=== PATIENT | female | born 1940 | race Caucasian/White ===

== ENCOUNTER → 2017-02-09 | Outpatient (REF) | payer MEDICARE, OTHER ==
[2017-02-09 12:33] LABS: ALBUMIN 3.5 GM/DL (3.2-5.2); ALBUMIN/GLOBULIN RATIO 1.09 (1.00-1.93); ALKALINE PHOSPHATASE 77 U/L (45-117); ALT/SGPT 30 U/L (12-78); ANION GAP 5 MEQ/L (8-16); AST/SGOT 18 U/L (15-37); BILIRUBIN,TOTAL 0.9 MG/DL (0.2-1.0); BLOOD UREA NITROGEN 19 MG/DL (7-18); CALCIUM LEVEL 9.2 MG/DL (8.8-10.2); CARBON DIOXIDE LEVEL 31 MEQ/L (21-32); CHLORIDE LEVEL 106 MEQ/L (98-107); CHOLESTEROL LEVEL 147 MG/DL (<200); CREATININE FOR GFR 0.91 MG/DL (0.55-1.02); GLOMERULAR FILTRATION RATE > 60.0 (>39); GLUCOSE, FASTING 113 MG/DL (83-110); POTASSIUM SERUM 4.5 MEQ/L (3.5-5.1); SODIUM LEVEL 142 MEQ/L (136-145); TOTAL PROTEIN 6.7 GM/DL (6.4-8.2); TRIGLYCERIDES LEVEL 64 MG/DL (<150)
== END ==
LOC: M SFHCPLAZ 07:46
PROVIDERS: ATTEND Nurse Practitioner Family
DX: I10 Essential (primary) hypertension (principal); E88.81 Metabolic syndrome and other insulin resistance; E78.2 Mixed hyperlipidemia; Z79.899 Other long term (current) drug therapy

== ENCOUNTER → 2017-08-12 | Outpatient (REF) | payer MEDICARE, OTHER ==
[2017-08-12 10:43] LABS: ALBUMIN 3.7 GM/DL (3.2-5.2); ALBUMIN/GLOBULIN RATIO 1.12 (1.00-1.93); BILIRUBIN,TOTAL 1.2 MG/DL (0.2-1.0); CALCIUM LEVEL 9.3 MG/DL (8.8-10.2); CREATININE FOR GFR 1.02 MG/DL (0.55-1.02); GLOMERULAR FILTRATION RATE 56.4 (>39); POTASSIUM SERUM 4.5 MEQ/L (3.5-5.1)
== END ==
LOC: M SFHCPLAZ 07:46
PROVIDERS: ATTEND Nurse Practitioner Family
DX: E88.81 Metabolic syndrome and other insulin resistance (principal); I10 Essential (primary) hypertension; M85.80 Other specified disorders of bone density and structure, unspecified site; Z79.899 Other long term (current) drug therapy

== ENCOUNTER → 2017-08-19 | Outpatient (CLI) | payer MEDICARE, BC ==
--- NOTE | 2017-08-19 09:10 | REPMRS ---
Patient History The patient states she had a clinical breast exam in 08/07 Family history of colorectal cancer in mother at age 89. Digital Woman Screen Mammo: August 19, 2017 - Exam #: [id number] Bilateral CC and MLO view(s) were taken. Technologist: Savannah Quispe, Technologist Prior study comparison: August 12, 2016, digital woman screen mammo performed at [facility]. August 03, 2015, digital woman screen mammo performed at [facility]. April 28, 2014, digital woman screen mammo performed at [facility]. FINDINGS: There are scattered fibroglandular densities. There has been no change in the appearance of the mammogram from the prior studies. There is a mild amount of scattered fibroglandular density which is fairly symmetric. There is no interval development of dominant mass, architectural distortion, or clustered microcalcification suggestive of malignancy. ASSESSMENT: BI-RADS/ACR category 1 mammogram. Negative. Recommendation Routine screening mammogram in 1 year (for women over age 40). This mammogram was interpreted with the aid of an FDA-approved computer-aided dectection system. Electronically Signed By: Blayne Brownlee MD 08/19/17 [id number]
== END ==
LOC: M WHC 08:04
PROVIDERS: ATTEND Nurse Practitioner Family
DX: Z12.31 Encounter for screening mammogram for malignant neoplasm of breast (principal); Z23 Encounter for immunization
CPT/HCPCS: 90662; 99497; G0008; G0202

== ENCOUNTER → 2018-08-11 | Outpatient (CLI) | payer MEDICARE, BC | LOC: M WHC 08:32 | DX: Z12.31 Encounter for screening mammogram for malignant neoplasm of breast (principal); Z80.0 Family history of malignant neoplasm of digestive organs; Z23 Encounter for immunization | CPT/HCPCS: 77067 ==

== ENCOUNTER → 2019-01-17 | Outpatient (REF) | payer MEDICARE, OTHER ==
[2019-01-17 12:47] LABS: ALBUMIN 3.6 GM/DL (3.2-5.2); BILIRUBIN,TOTAL 1.7 MG/DL (0.2-1.0); CALCIUM LEVEL 8.6 MG/DL (8.8-10.2); CHOLESTEROL RISK RATIO 2.262 (<5); CREATININE FOR GFR 1.2 MG/DL (0.55-1.30); GLOMERULAR FILTRATION RATE 46.5 (>39); POTASSIUM SERUM 4.4 MEQ/L (3.5-5.1); TOTAL PROTEIN 6.9 GM/DL (6.4-8.2)
[2019-01-17 12:55] LABS: TOTAL 25(OH) VITAMIN D 51.9 NG/ML (30.0-100.0)
[2019-01-17 12:57] LABS: CREATININE, URINE 63.2 MG/DL; MALB URINE SIEMENS 5.1 MG/L
[2019-01-17 12:59] LABS: HEMOGLOBIN A1c 6.2 %
== END ==
LOC: M SFHCPLAZ 08:05
PROVIDERS: ATTEND Nurse Practitioner Family
DX: I10 Essential (primary) hypertension (principal); E88.81 Metabolic syndrome and other insulin resistance; E78.2 Mixed hyperlipidemia; E55.9 Vitamin D deficiency, unspecified

== ENCOUNTER 2019-02-10 06:40 | Day surgery (SDC) | payer MEDICARE, BC, OTHER ==
[~2019-02-10] VITALS: Ht 147.3 cm; Wt 59.9 kg
[~2019-02-10 06:40] MED LIST: ATOR1TAB21 PO; BISO5TAB5 PO; FLON1SPR; MECL1CHW PO; RANI150T PO; REST0.05 OU
[2019-02-10] MEDS ORDERED: NS 1,000 ML IV ONE (07:00)
[2019-02-10] MEDS ORDERED: VITAD1000T PO (07:18)
[2019-02-10] MEDS ORDERED: OCUVCAP2 PO (07:18)
[2019-02-10] MEDS ORDERED: MULTCAP PO (07:18)
[2019-02-10] MEDS ORDERED: PROPOFOL 200 MG/20 ML VIAL As Ordered ONE (07:55)
--- NOTE | 2019-02-10 08:29 | ROOR ---
Patient Name: Nydia Chatterjee Procedure Date: 02/10/2019 7:54 AM Date of : 1940 Age: 78 Room: [facility] Gender: Female Note Status: Finalized Procedure: Colonoscopy Indications: High risk colon cancer surveillance: Personal history of colonic polyps Providers: Rolando Joshua Jr, MD Referring MD: Shana Alcaraz NP Requesting Provider: Medicines: Propofol per Anesthesia Complications: No immediate complications. Procedure: Pre-Anesthesia Assessment: - Prior to the procedure, a History and Physical was performed, and patient medications and allergies were reviewed. The patient is competent. The risks and benefits of the procedure and the sedation options and risks were discussed with the patient. All questions were answered and informed consent was obtained. Patient identification and proposed procedure were verified by the physician and the nurse in the pre-procedure area and in the procedure room. Mental Status Examination: alert and oriented. Airway Examination: normal oropharyngeal airway and neck mobility. Respiratory Examination: clear to auscultation. CV Examination: normal. ASA Grade Assessment: II - A patient with mild systemic disease. After reviewing the risks and benefits, the patient was deemed in satisfactory condition to undergo the procedure. The anesthesia plan was to use moderate sedation / analgesia (conscious sedation). Immediately prior to administration of medications, the patient was re-assessed for adequacy to receive sedatives. The heart rate, respiratory rate, oxygen saturations, blood pressure, adequacy of pulmonary ventilation, and response to care were monitored throughout the procedure. The physical status of the patient was re-assessed after the procedure. The Colonoscope was introduced through the anus and advanced to the cecum, identified by appendiceal orifice and ileocecal valve. The colonoscopy was performed without difficulty. The patient tolerated the procedure well. The quality of the bowel preparation was adequate. Findings: Five polyps were found in the descending colon, transverse colon, ascending colon and appendiceal orifice. The polyps were small in size. These polyps were removed with a hot snare. Resection was complete, but the polyp tissue was only partially retrieved. Multiple small and large-mouthed diverticula were found in the sigmoid colon. A few small and large-mouthed diverticula were found in the descending colon. Impression: - Five small polyps in the descending colon, in the transverse colon, in the ascending colon and at the appendiceal orifice, removed with a hot snare. Complete resection. Partial retrieval. - Diverticulosis in the sigmoid colon. - Diverticulosis in the descending colon. Recommendation: - Discharge patient to home (ambulatory). - Repeat colonoscopy in 5 years for surveillance. Rolando Joshua MD Rolando Joshua Jr, MD 02/10/2019 8:29:02 AM Electronically signed by Rolando Joshua Jr, MD Number of Addenda: 0 Note Initiated On: 02/10/2019 7:54 AM Estimated Blood Loss: Estimated blood loss: none.
[2019-02-10 09:05] VITALS: BP 146/68
== END 2019-02-10 09:07 | disposition home or self-care (01) ==
LOC: M OPP 06:40
PROVIDERS: ATTEND Surgery
DX: Z12.11 Encounter for screening for malignant neoplasm of colon (principal); Z86.010 Personal history of colon polyps; D12.4 Benign neoplasm of descending colon; D12.3 Benign neoplasm of transverse colon; D12.2 Benign neoplasm of ascending colon; D12.1 Benign neoplasm of appendix; K57.30 Diverticulosis of large intestine without perforation or abscess without bleeding; Z79.899 Other long term (current) drug therapy; Z87.891 Personal history of nicotine dependence; Z80.8 Family history of malignant neoplasm of other organs or systems

== ENCOUNTER → 2019-08-31 | Outpatient (CLI) | payer MEDICARE, BC, OTHER ==
[~2019-08-31] MED LIST changes: -BISO5TAB5 PO; +BISO5TAB9 PO; +CHOL100029 PO; +MULTCAP PO; +OCUVCAP2 PO
--- NOTE | 2019-08-31 10:06 | REPMRS ---
Patient History The patient states she had a clinical breast exam in 2018. Family history of colorectal cancer at age 89 in mother. 3D TOMOSYNTHESIS WAS PERFORMED. [facility] for [facility] 3.[facility]%. Digital Woman Screen Mammo: August 31, 2019 - Exam #: [id number] Bilateral CC and MLO view(s) were taken. Technologist: Christi French, Technologist Prior study comparison: August 11, 2018, bilateral digital woman screen mammo performed at [facility]. August 19, 2017, digital woman screen mammo performed at [facility]. FINDINGS: There are scattered fibroglandular densities. There has been no change in the appearance of the mammogram from the prior studies. There is a mild amount of residual fibroglandular tissue which is fairly symmetric. There is no interval development of dominant mass, architectural distortion, or clustered microcalcification suggestive of malignancy. Assessment: BI-RADS/ACR category 1 mammogram. Negative Mammogram. Recommendation Routine screening mammogram in 1 year (for women over age 40). This mammogram was interpreted with the aid of an FDA-approved computer-aided dectection system. Electronically Signed By: Jamil Starks MD 08/31/19 2003
== END ==
LOC: M WHC 07:54
PROVIDERS: ATTEND Nurse Practitioner Family
DX: Z12.31 Encounter for screening mammogram for malignant neoplasm of breast (principal)

== ENCOUNTER → 2020-01-20 | Outpatient (REF) | payer MEDICARE, OTHER ==
[~2020-01-20] MED LIST changes: +BISO5TAB14 PO; -BISO5TAB9 PO
[2020-01-20 10:12] LABS: ALBUMIN 3.5 GM/DL (3.2-5.2); BILIRUBIN,TOTAL 1.4 MG/DL (0.2-1.0); CALCIUM LEVEL 8.9 MG/DL (8.8-10.2); CHOLESTEROL RISK RATIO 2.265 (<5); CREATININE FOR GFR 1.04 MG/DL (0.55-1.30); GLOMERULAR FILTRATION RATE 54.7 (>39); POTASSIUM SERUM 4.2 MEQ/L (3.5-5.1); TOTAL PROTEIN 6.7 GM/DL (6.4-8.2)
[2020-01-20 10:19] LABS: TOTAL 25(OH) VITAMIN D 53.5 NG/ML (30.0-100.0)
[2020-01-20 10:37] LABS: HEMOGLOBIN A1c 6.2 %
[2020-01-20 14:16] LABS: CREATININE, URINE 52.7 MG/DL; MALB URINE SIEMENS 29.6 MG/L; MAU/CREAT RATIO 56.1 MCG/MG (0.0-30.0)
== END ==
LOC: M PLALAB 07:55
PROVIDERS: ATTEND Nurse Practitioner Family
DX: I10 Essential (primary) hypertension (principal); E88.81 Metabolic syndrome and other insulin resistance; E78.2 Mixed hyperlipidemia; E55.9 Vitamin D deficiency, unspecified

== ENCOUNTER → 2020-05-25 | Outpatient (CLI) | payer MEDICARE, OTHER ==
[2020-05-25 12:10] LABS: ALBUMIN 3.4 GM/DL (3.2-5.2); BILIRUBIN,TOTAL 1.9 MG/DL (0.2-1.0); CALCIUM LEVEL 9.2 MG/DL (8.8-10.2); CREATININE FOR GFR 1.11 MG/DL (0.55-1.30); GLOMERULAR FILTRATION RATE 50.7 (>39); POTASSIUM SERUM 4.3 MEQ/L (3.5-5.1); TOTAL PROTEIN 6.4 GM/DL (6.4-8.2)
[2020-05-25 12:38] LABS: CREATININE, URINE 99.8 MG/DL
== END ==
LOC: M PLALAB 08:32
PROVIDERS: ATTEND Nurse Practitioner Family
DX: R80.9 Proteinuria, unspecified (principal); I10 Essential (primary) hypertension; Z79.899 Other long term (current) drug therapy

== ENCOUNTER → 2020-12-18 | Outpatient (REF) | payer MEDICARE, OTHER ==
[2020-12-18 14:33] LABS: HEMOGLOBIN A1c 5.9 %
[2020-12-18 14:48] LABS: ALBUMIN 3.8 GM/DL (3.2-5.2); CALCIUM LEVEL 9.9 MG/DL (8.8-10.2); CHOLESTEROL RISK RATIO 2.318 (<5); CREATININE FOR GFR 1.14 MG/DL (0.55-1.30); FREE T4 1.2 NG/DL (0.76-1.46); GLOMERULAR FILTRATION RATE 49.1 (>39); MALB URINE SIEMENS 9.1 MG/L; MAU/CREAT RATIO 5.6 MCG/MG (0.0-30.0); POTASSIUM SERUM 4.1 MEQ/L (3.5-5.1); THYROID STIMULATING HORMONE 1.52 uIU/ML (0.358-3.740); TOTAL PROTEIN 6.8 GM/DL (6.4-8.2)
[2020-12-18 15:28] LABS: TOTAL 25(OH) VITAMIN D 52.8 NG/ML (30.0-100.0)
== END ==
LOC: M PLALAB 10:01
PROVIDERS: ATTEND Nurse Practitioner Family
DX: I10 Essential (primary) hypertension (principal); R41.89 Other symptoms and signs involving cognitive functions and awareness; E88.81 Metabolic syndrome and other insulin resistance; E78.2 Mixed hyperlipidemia; E55.9 Vitamin D deficiency, unspecified

== ENCOUNTER → 2020-12-18 | Outpatient (CLI) | payer MEDICARE, BC ==
--- NOTE | 2020-12-18 12:47 | DEXAMM ---
INDICATION: M85.80 OSTEOPENIA. COMPARISON: Comparison studies including most recent exam from September 02, 2016 and the most remote which is dated Feb 13 2004.. TECHNIQUE: Bone density was measured using dual-energy x-ray absorptionmetry (DEXA). FINDINGS: AP SPINE L1-L4 BMD 1.142 g/cm2 Young Adult T-Score -0.4 Age Matched Z-Score 1.4. LT FEMUR, TOTAL BMD 0.770 g/cm2 Young Adult T-Score -1.9 Age Matched Z-Score 0.0. LT NECK BMD 0.751 g/cm2 Young Adult T-Score -2.1 Age Matched Z-Score 0.0. RT FEMUR, TOTAL BMD 0.757 g/cm2 Young Adult T-Score -2.0 Age Matched Z-Score -0.1. RT NECK BMD 0.731 g/cm2 Young Adult T-Score -2.2 Age Matched Z-Score -0.2. IMPRESSION: There is normal bone density of the spine. There is low bone density of the left hip. There is low bone density of the right hip. The density of the spine has increased 4.3% since the initial exam on February 13, 2004. The density of the spine increased 15.2% since most recent exam on September 02, 2016. The density of the left hip has decreased 10.3% since initial exam on February 13, 2004. The density of the left hip has increased 4.6% since most recent exam on September 02, 2016. The density of the right hip has decreased 11.0% since the initial exam on February 13, 2004. The density of the right hip has increased 2.7% since the most recent exam on September 02, 2016. FOLLOW-UP: Recommendation for the next bone density exam: 2 years. <Electronically signed by Blayne Brownlee > 12/18/20 [id number]
== END ==
LOC: M WHC 10:46
PROVIDERS: ATTEND Nurse Practitioner Family
DX: M85.851 Other specified disorders of bone density and structure, right thigh (principal); M85.852 Other specified disorders of bone density and structure, left thigh; I10 Essential (primary) hypertension; R41.89 Other symptoms and signs involving cognitive functions and awareness; E88.81 Metabolic syndrome and other insulin resistance; E78.2 Mixed hyperlipidemia; E55.9 Vitamin D deficiency, unspecified; Z79.899 Other long term (current) drug therapy

== ENCOUNTER 2021-04-04 06:51 | Emergency (ER) | payer MEDICARE, BC, OTHER ==
[~2021-04-04] VITALS: Ht 144.8 cm; Wt 60.9 kg
--- NOTE | 2021-04-04 08:26 | REP ---
INDICATION: left calf pain r/o dvt. COMPARISON: None. TECHNIQUE: Left {lower extremity duplex venous scanning is performed from the groin to the ankle level. FINDINGS: The deep veins are anechoic and fully compressible from the groin to the popliteal fossa in the left lower extremity. Color flow imaging is homogeneous. Spectral Doppler interrogation demonstrates intact respiratory variation in flow and normal manual augmentation of flow. There is no evidence of deep vein thrombosis above the knee. There is no evidence of DVT in the visualized calf veins. Doppler interrogation of the contralateral common femoral vein shows normal symmetric respiratory phasicity. IMPRESSION: No evidence of DVT in the left lower extremity femoropopliteal veins. No DVT in the visible portions of the calf veins. <Electronically signed by Blayne Brownlee > 04/04/21 [id number]
[2021-04-04 09:01] VITALS: BP 145/65
== END 2021-04-04 09:02 | disposition home or self-care (01) ==
LOC: M ED 06:51
DX: G47.62 Sleep related leg cramps (principal); Z79.899 Other long term (current) drug therapy; Z88.0 Allergy status to penicillin

== ENCOUNTER 2021-04-10 10:25 | Emergency (ER) | payer MEDICARE, BC, OTHER ==
[~2021-04-10] VITALS: Ht 146.1 cm; Wt 59.3 kg
[2021-04-10 12:57] LABS: BASO % 0.1 % (0.0-1.0); HEMATOCRIT 38.2 % (36.0-47.0); HEMOGLOBIN 12.9 g/dl (12.0-15.5); LYMPH # 0.4 10^3/uL (1.5-5.0); LYMPH % 3.3 % (24.0-44.0); MEAN CORPUSCULAR HEMOGLOBIN 34.3 pg (27.0-33.0); MEAN CORPUSCULAR HGB CONC 33.8 g/dl (32.0-36.5); MEAN CORPUSCULAR VOLUME 101.6 fl (80.0-96.0); MONO # 0.3 10^3/uL (0.0-0.8); MONO % 2.3 % (2.0-8.0); NEUTROPHILS # 10.8 10^3/uL (1.5-8.5); NEUTROPHILS % 93.8 % (36.0-66.0); PLATELET COUNT, AUTOMATED 209 10^3/uL (150-450); RED BLOOD COUNT 3.76 10^6/uL (4.00-5.40); WHITE BLOOD COUNT 11.5 10^3/uL (4.0-10.0)
[2021-04-10 13:26] LABS: CALCIUM LEVEL 9.2 MG/DL (8.8-10.2); CREATININE FOR GFR 1.1 MG/DL (0.55-1.30); GLOMERULAR FILTRATION RATE 51.1 (>39)
[2021-04-10 13:27] LABS: ALBUMIN 3.7 GM/DL (3.2-5.2); BILIRUBIN,DIRECT 0.3 MG/DL (0.0-0.2); BILIRUBIN,TOTAL 1.5 MG/DL (0.2-1.0)
[2021-04-10] MEDS ORDERED: ONDA4TAB6 PO (14:39)
[2021-04-10 15:04] VITALS: BP 170/72
== END 2021-04-10 15:06 | disposition home or self-care (01) ==
LOC: M ED 10:25
DX: K62.5 Hemorrhage of anus and rectum (principal); F03.90 Unspecified dementia, unspecified severity, without behavioral disturbance, psychotic disturbance, mood disturbance, and anxiety; E78.5 Hyperlipidemia, unspecified; Z79.899 Other long term (current) drug therapy; Z88.0 Allergy status to penicillin

== ENCOUNTER 2021-05-04 02:36 | Inpatient (IN) | payer MEDICARE, BC, OTHER ==
[~2021-05-04] VITALS: Ht 152.4 cm; Wt 56.3 kg
[~2021-05-04 02:36] MED LIST changes: +ONDA4TAB6 PO
[2021-05-04 03:24] LABS: APPEARANCE, URINE HAZY (CLEAR); BACTERIA, URINE AUTO 1+ (NEGATIVE); BILIRUBIN, URINE AUTO NEGATIVE (NEGATIVE); BLOOD, URINE BLOOD NEGATIVE (NEGATIVE); COLOR, URINE YELLOW (YELLOW); GLUCOSE, URINE (UA) AUTO NEGATIVE (NEGATIVE); KETONE, URINE AUTO NEGATIVE (NEGATIVE); LEUKOCYTE ESTERASE, URINE AUTO 3+ (NEGATIVE); MUCUS, URINE SMALL (NEGATIVE); NITRITE, URINE AUTO NEGATIVE (NEGATIVE); PROTEIN, URINE AUTO NEGATIVE (NEGATIVE); RBC, URINE AUTO 4 /HPF (0-3); SPECIFIC GRAVITY URINE AUTO 1.008 (1.002-1.035); SQUAMOUS EPITHELIAL CELL UR AU 2 /HPF (0-6); TRANSITIONAL EPITHELIAL AUTO 2 /HPF; UROBILINOGEN, URINE AUTO 0.2 mg/dL (0.0-2.0); WBC, URINE AUTO 66 /HPF (0-3)
[2021-05-04 03:41] LABS: AMPHETAMINES LEVEL URINE NEGATIVE (NEGATIVE); BARBITURATES URINE NEGATIVE (NEGATIVE); BENZODIAZEPINES URINE NEGATIVE (NEGATIVE); CANNABINOIDS URINE NEGATIVE (NEGATIVE); COCAINE METABOLITE URINE NEGATIVE (NEGATIVE); METHADONE URINE NEGATIVE (NEGATIVE); OPIATES URINE NEGATIVE (NEGATIVE); PHENCYCLIDINE URINE NEGATIVE (NEGATIVE)
[2021-05-04] MEDS ORDERED: diphenhydrAMINE 50MG/ML VIAL (J1200) As Ordered ONE (04:26)
[2021-05-04] MEDS ORDERED: HALOPERIDOL 5MG/ML VIAL (J1630 PER 1) As Ordered ONE (04:27)
[2021-05-04] MEDS ORDERED: LORazepam 2 MG/ML VIAL As Ordered ONE (04:27)
[2021-05-04] MEDS ORDERED: LORazepam 2 MG/ML VIAL IM ONE (04:30)
[2021-05-04] MEDS ORDERED: LORazepam 2 MG/ML VIAL IM STA (04:30)
[2021-05-04] MEDS ORDERED: diphenhydrAMINE 50MG/ML VIAL (J1200) IM ONE (04:30)
[2021-05-04] MEDS ORDERED: HALOPERIDOL 5MG/ML VIAL (J1630 PER 1) IM ONE (04:30)
[2021-05-04 04:46] LABS: HEMATOCRIT 41.2 % (36.0-47.0); HEMOGLOBIN 13.9 g/dl (12.0-15.5); MEAN CORPUSCULAR HEMOGLOBIN 34.6 pg (27.0-33.0); MEAN CORPUSCULAR HGB CONC 33.7 g/dl (32.0-36.5); MEAN CORPUSCULAR VOLUME 102.5 fl (80.0-96.0); PLATELET COUNT, AUTOMATED 241 10^3/uL (150-450); RED BLOOD COUNT 4.02 10^6/uL (4.00-5.40); WHITE BLOOD COUNT 7.3 10^3/uL (4.0-10.0)
[2021-05-04 05:20] LABS: ACETAMINOPHEN LEVEL < 2.0 UG/ML (10.0-30.0); ALBUMIN 4.2 GM/DL (3.2-5.2); ALT/SGPT 29 U/L (12-78); BILIRUBIN,DIRECT 0.4 MG/DL (0.0-0.2); BILIRUBIN,TOTAL 1.7 MG/DL (0.2-1.0); BLOOD UREA NITROGEN 14 MG/DL (7-18); CALCIUM LEVEL 9.6 MG/DL (8.8-10.2); CARBON DIOXIDE LEVEL 25 MEQ/L (21-32); CHLORIDE LEVEL 110 MEQ/L (98-107); CREATININE FOR GFR 1.18 MG/DL (0.55-1.30); ETHYL ALCOHOL (ETHANOL) < 0.003 % (0.000-0.010); GLOMERULAR FILTRATION RATE 47.2 (>39); GLUCOSE, FASTING 137 MG/DL (70-100); SALICYLATE LEVEL < 1.7 MG/DL (5.0-30.0); SODIUM LEVEL 144 MEQ/L (136-145); TOTAL PROTEIN 7.7 GM/DL (6.4-8.2)
[2021-05-04 05:43] LABS: CPK CREATINE PHOSPHOKINASE 196 U/L (26-192); MB/CK RELATIVE INDEX 2.04 (< OR =4); TROPONIN I < 0.02 NG/ML (< 0.10)
--- NOTE | 2021-05-04 06:41 | REPVR ---
PROCEDURE INFORMATION: Exam: CT Head Without Contrast Exam date and time: 05/04/2021 5:10 AM Age: 80 years old Clinical indication: Altered mental status/memory loss; Confusion or disorientation TECHNIQUE: Imaging protocol: Computed tomography of the head without contrast. Radiation optimization: All CT scans at this facility use at least one of these dose optimization techniques: automated exposure control; mA and/or kV adjustment per patient size (includes targeted exams where dose is matched to clinical indication); or iterative reconstruction. COMPARISON: No relevant prior studies available. FINDINGS: Brain: Diffuse moderate cerebral age related volume loss. Moderate patchy low attenuation in the white matter compatible with moderate chronic small vessel ischemic disease. No midline shift, mass, fluid collection, or evidence of hemorrhage. Cerebral ventricles: Ventricular enlargement proportional to volume loss. Paranasal sinuses: Visualized sinuses are unremarkable. No fluid levels. Mastoid air cells: Visualized mastoid air cells are well aerated. Bones/joints: Unremarkable. No acute fracture. Soft tissues: Unremarkable. IMPRESSION: Moderate involutional changes, no acute intracranial abnormality. Electronically signed by: Tim Mills On 05/04/2021 06:40:34 AM
[2021-05-04] MEDS ORDERED: CIPROFLOXACIN 500MG TABLET PO ONE (07:35)
[2021-05-04] MEDS ORDERED: ONDA4TAB6 PO (07:53)
[2021-05-04] MEDS ORDERED: D31000TA2 PO (08:00)
[2021-05-04] MEDS ORDERED: VITMTA PO (08:00)
[2021-05-04] MEDS ORDERED: CALCTAB41 PO (08:00)
[2021-05-04] MEDS ORDERED: OCUVTAB8 PO (08:00)
[2021-05-04] MEDS ORDERED: HOME MED LIST COMPLETE! XX SCH (08:05)
[2021-05-04] MEDS ORDERED: ONDANSETRON 4 MG ORAL DISINTEGRATING TAB PO PRN (08:20)
[2021-05-04] MEDS: ENOXAPARIN 40MG/0.4ML SYRINGE (J1650 PER 10MG) SC SCH (09:00)
--- NOTE | 2021-05-04 09:11 | ECGEPIP ---
[facility] - ED Test Date: 2021-05-04 Pat Name: ANNETTE TORRES Department: Room: - Gender: Female Assessment Nurse: PSYCH : 1940 Requested By: LICO Starkey Order Number: [id number] Reading MD: Scar Siddiqui Measurements Intervals [place] Rate: 53 P: 57 AR: 132 QRS: 26 QRSD: 72 T: 7 QT: 448 QTc: 420 Interpretive Statements Sinus bradycardia NSTTW ABNORMALITY(S) NO PRIORS FOR COMPARISON Electronically Signed on 05-04-2021 9:10:49 EDT by Scar Siddiqui
[2021-05-04 09:46] LABS: RSV AMPLIFICATION NEGATIVE (NEGATIVE)
[2021-05-04] MEDS: OCUVITE 1 TAB PO SCH (12:00)
[2021-05-04] MEDS: CIPROFLOXACIN 500MG TABLET PO SCH ×2 (12:00→17:14)
[2021-05-04] MEDS: bisoproloL fumarate 5 MG TAB PO SCH (12:00)
[2021-05-04] MEDS: THIAMINE 100 MG TAB PO SCH (12:00)
[2021-05-04] MEDS: VITAMIN D 1,000 INTERNATIONAL UNITS TABLET PO SCH (12:00)
--- NOTE | 2021-05-04 12:17 | HPEPDOC ---
General Date of Admission May 04, 2021 at 08:13 Date of Service: May 04, 2021 Chief Complaint The patient is a 80-year-old female admitted with a reason for visit of Dementia, Uti. Source: Patient History of Present Illness Mrs. Chatterjee is a 80 year old female with dementia, hypertension, and CKD stage 3 who is here for metabolic encephalopathy. Patient was sedated with Ativan, and I was not able to obtain history from her. Instead, history was obtained from her Tariq Chatterjee. Patient has been having memory problems and agitation for several years. Her PCP had referred patient to neurology for dementia, but patient refused to do lab work and MRI. Her dementia has become progressively worse where she does not remember being to Tariq Chatterjee. She refers to him as "sir" and "friend". She would get in arguments with him and walk away. She would forget about her and about her family friends as well. She would sometimes cry and say she wants to go home when she was already at home. About 2 to 3 weeks ago, she started to become more a gitated. She took all the coats out from the closet and throw them around the house. Last night after midnight, she wandered outside. Neighbor found her and spoke with her. She was agitated and police was called. She did not want to go home. came out and was eventually able to get her home. She got in an argument again with him at home, and she walked outside again. Police was called back, and patient was taken to the ED as a danger to herself. While here, vital signs were stable. No fever or leukocytosis. Renal function at baseline. TSH was within normal. Around 4 am, patient was agitated and was given IM Ativan. UA demonstrated pyuria. Patient will be admitted for metabolic encephalopathy. Home Medications Scheduled Atorvastatin Calcium (Atorvastatin Calcium) 20 Mg Tablet, 20 MG PO QHS, (Reported) Bisoprolol Fumarate (Bisoprolol Fumarate) 5 Mg Tablet, 5 MG PO DAILY, (Reported) Calcium Carbonate/Vitamin D3 (Calcium 500-Vit D3 400 Tablet) 1 Each Tablet, 1 TAB PO DAILY, (Reported) Cholecalciferol (Vitamin D3) (Vitamin D3) 1,000 Unit Tablet, 1,000 UNITS PO DAILY, (Reported) Multivitamins (Thera M Plus Tablet) 1 Each Tablet, 1 TAB PO DAILY, (Reported) Mv-Min/FA/Vit K/Lycop/Lut/Zeax (Ocuvite Eye Plus Multi Tablet) 1 Each Tablet, 1 TAB PO DAILY, (Reported) Scheduled PRN Ondansetron (Ondansetron Odt) 4 Mg Tab.rapdis, 4 MG PO Q6H PRN for NAUSEA OR VOMITING, (Reported) Allergies Coded Allergies: Penicillins (Verified Allergy, Unknown, UNSURE, 02/03/19) Past Medical History Medical History 1. GERD 2. Hyperlipidemia 3. Hypertension 4. Vertigo 5. Degenerative disc disease 6. Allergic rhinitis 7. Osteopenia 8. Metabolic syndrome 9. Vitamin D deficiency 10. Dementia Surgical History 1. Total hysterectomy with USO 2. Appendectomy 3. Colonoscopy with polyp resection 4. Skin lesion on right shoulder (biopsy benign) Family History Father: , history of tongue cancer Mother: , history of Alzheimer's dementia Social History * Smoker: former Smoker Alcohol: Denies Drugs: denies A-FIB/CHADSVASC A-FIB History Current/History of A-Fib/PAF?: No Review of Systems Pulmonary: Denies: Dyspnea Cardiovascular: Denies: Chest Pain Gastrointestinal: Denies: Abdominal Pain Other systems Patient recently had Ativan. Easy to arouse, but not awake enough for full ROS. She was able to answer a few questions before falling back to sleep Physical Examination General Exam: Negative: Alert, Cooperative Eye Exam: Negative: Sclera icteric ENT Exam: Positive: Atraumatic Neck Exam: Positive: Supple Chest Exam: Positive: Clear to auscultation Heart Exam: Positive: Rate Normal, Regular Rhythm Abdomen Exam: Positive: Normal bowel sounds, Soft; Negative: Tenderness Extremity Exam: Negative: Edema Neuro Exam: Positive: Other (Very sleepy, unable to participate in neuro exam) Psych Exam: Positive: Other (Very sleepy) Vital Signs Vital Signs Date Time Temp Pulse Resp B/P (MAP) Pulse Ox O2 Delivery O2 Flow Rate FiO2 05/04/21 10:17 96.7 51 18 137/59 (85) 100 Room Air Laboratory Data Labs 24H Laboratory Tests 2 05/04/21 03:06: Urine Color YELLOW, Urine Appearance HAZY, Urine pH 5.0, Urine Specific [place] 1.008, Urine Protein NEGATIVE, Urine Glucose (Auto)(UA) NEGATIVE, Urine Ketones (Auto) NEGATIVE, Urine Blood NEGATIVE, Urine Nitrite NEGATIVE, Urine Bilirubin NEGATIVE, Urine Urobilinogen 0.2, Urine Leukocyte Esterase (Auto) 3+H, Urine WBC (Auto) 66H, Urine RBC (Auto) 4H, Urine Hyaline Casts (Auto) 0, Urine Bacteria (Auto) 1+H, Urine Squamous Epithelial Cells 2, Urine Transitional Epithelial Cells 2, Urine Mucus (Auto) SMALL, Urine Sperm (Auto) , Urine Opiates Screen NEGATIVE, Urine Methadone Screen NEGATIVE, Urine Barbiturates Screen NEGATIVE, Urine Phencyclidine Screen NEGATIVE, Urine Amphetamines Screen NEGATIVE, Urine Benzodiazepines Screen NEGATIVE, Urine Cocaine Metabolite Screen NEGATIVE, Urine Cannabinoids Screen NEGATIVE 05/04/21 04:35: Nucleated Red Blood Cells % (auto) 0.0, Anion Gap 9, Glomerular Filtration Rate 47.2, Calcium Level 9.6, Total Bilirubin 1.7H, Direct Bilirubin 0.4H, Aspartate Amino Transf (AST/SGOT) 22, Alanine Aminotransferase (ALT/SGPT) 29, Alkaline Phosphatase 67, Total Creatine Kinase 196H, Creatine Kinase MB 4.0H, Creatine Kinase MB Relative Index 2.04, Troponin I < 0.02, Total Protein 7.7, Albumin 4.2, Albumin/Globulin Ratio 1.2, Thyroid Stimulating Hormone (TSH) 1.240, Salicylates Level < 1.7L, Acetaminophen Level < 2.0L, Ethyl Alcohol Level < 0. 003 05/04/21 08:50: Coronavirus (COVID-19)(PCR) NEGATIVE, Influenza Type A (RT-PCR) NEGATIVE, Influenza Type B (RT-PCR) NEGATIVE, Respiratory Syncytial Virus (PCR) NEGATIVE CBC/BMP Laboratory Tests 05/04/21 04:35 Microbiology Microbiology 05/04/21 Urine Culture, Received Pending Assessment/Plan Mrs. Chatterjee is a 80 year old female with dementia, hypertension, and CKD stage 3 who is here for metabolic encephalopathy 2/2 UTI. Patient will be put on antibiotics for the UTI. Otherwise, patient will still have dementia after treatment with UTI. is having troubling caring for her, especially with patient trying to escape from home. I've place consult for cyanide case hardener/PFS. Plan / VTE VTE Prophylaxis Ordered?: Yes Plan Plan 1. Metabolic encephalopathy -Secondary to UTI -Pending urine cultures -Ciprofloxacin day 1 2. Dementia -Gradual. Patient starting to become more agitated -Does not know she is . She has tried to escape from home -Supportive care -testing manager/PFS consulted 3. Hypertension -Continue bisoprolol 4. Hyperlipidemia -Continue atorvastatin 5. DVT ppx -Lovenox Disposition: Pending clinical improvement, urine cultures, and cyanide case hardener/PFS consultation OSEI SIMON DO May 04, 2021 12:17
[2021-05-04 17:20] LABS: BLOOD UREA NITROGEN 12 MG/DL (7-18); CALCIUM LEVEL 8.3 MG/DL (8.8-10.2); CARBON DIOXIDE LEVEL 25 MEQ/L (21-32); CHLORIDE LEVEL 111 MEQ/L (98-107); CREATININE FOR GFR 0.81 MG/DL (0.55-1.30); GLOMERULAR FILTRATION RATE > 60.0 (>39); GLUCOSE, FASTING 118 MG/DL (70-100); MAGNESIUM LEVEL 1.9 MG/DL (1.8-2.4); POTASSIUM SERUM 4.6 MEQ/L (3.5-5.1); SODIUM LEVEL 141 MEQ/L (136-145)
[2021-05-04] MEDS: ATORVASTATIN 20 MG TAB PO SCH (20:20)
[2021-05-04] MEDS: ACETAMINOPHEN TAB 650MG DOSE (2X325MG) PO PRN (21:52)
[2021-05-04 22:00] VITALS: BP 147/63
[2021-05-05] MEDS ORDERED: OLANZapine 2.5MG TABLET PO ONE (04:40)
[2021-05-05] MEDS: CIPROFLOXACIN 500MG TABLET PO SCH (04:47)
[2021-05-05 06:00] VITALS: BP 138/67
[2021-05-05 06:19] LABS: HEMATOCRIT 37.7 % (36.0-47.0); HEMOGLOBIN 12.8 g/dl (12.0-15.5); MEAN CORPUSCULAR HEMOGLOBIN 34.7 pg (27.0-33.0); MEAN CORPUSCULAR VOLUME 102.2 fl (80.0-96.0); PLATELET COUNT, AUTOMATED 226 10^3/uL (150-450); RED BLOOD COUNT 3.69 10^6/uL (4.00-5.40); WHITE BLOOD COUNT 4.6 10^3/uL (4.0-10.0)
[2021-05-05 06:45] LABS: CALCIUM LEVEL 8.7 MG/DL (8.8-10.2); CREATININE FOR GFR 0.96 MG/DL (0.55-1.30); GLOMERULAR FILTRATION RATE 59.8 (>39); POTASSIUM SERUM 3.9 MEQ/L (3.5-5.1)
[2021-05-05] MEDS: ENOXAPARIN 40MG/0.4ML SYRINGE (J1650 PER 10MG) SC SCH ×2 (09:00→09:51)
[2021-05-05] MEDS ORDERED: OLANZapine 2.5MG TABLET PO PRN (09:00)
[2021-05-05] MEDS: OCUVITE 1 TAB PO SCH (09:51)
[2021-05-05] MEDS: VITAMIN D 1,000 INTERNATIONAL UNITS TABLET PO SCH (09:53)
[2021-05-05] MEDS: bisoproloL fumarate 5 MG TAB PO SCH (09:53)
[2021-05-05] MEDS: THIAMINE 100 MG TAB PO SCH (09:54)
[2021-05-05] MEDS ORDERED: OLANZapine INTRAMUSCULAR 10MG VIAL IM ONE (12:15)
[2021-05-05] MEDS ORDERED: OLANZapine INTRAMUSCULAR 10MG VIAL IM PRN (12:15)
[2021-05-05] MEDS ORDERED: HALOPERIDOL 5MG/ML VIAL (J1630 PER 1) IM PRN (12:30)
[2021-05-05] MEDS ORDERED: diphenhydrAMINE 50MG/ML VIAL (J1200) IM PRN (12:30)
--- NOTE | 2021-05-05 13:38 | IPNPDOC ---
Subjective Date Seen The patient was seen on 05/05/21. Subjective Chief Complaint/HPI Mrs. Chatterjee is a 80 year old female with dementia, hypertension, and CKD stage 3 who is here for metabolic encephalopathy. This morning, she was pleasant. Denies chest pain or dyspnea. She was seen wandering the halls with nurse/aid/community outreach director several times. Late morning, she was agitated and was difficult to redirect. She kept calling for Ilia out loud. I spoke with daughter who is able to come today to help keep her calm. Unfortunately, she is working during the weekday and would not be able to stay overnight. Objective Physical Examination General Exam: Positive: Alert; Negative: Cooperative Eye Exam: Negative: Sclera icteric ENT Exam: Positive: Atraumatic Neck Exam: Positive: Supple Chest Exam: Positive: Clear to auscultation Heart Exam: Positive: Rate Normal, Regular Rhythm Abdomen Exam: Positive: Normal bowel sounds, Soft; Negative: Tenderness Extremity Exam: Negative: Edema Psych Exam: Negative: Memory Intact Assessment /Plan Assessment Mrs. Chatterjee is a 80 year old female with dementia, hypertension, and CKD stage 3 who is here for metabolic encephalopathy 2/2 UTI. Patient will be put on antibiotics for the UTI. Otherwise, patient will still have dementia after treatment with UTI. is having troubling caring for her, especially with patient trying to escape from home. I've place consult for caser/PFS. Plan/VTE VTE Prophylaxis Ordered?: Yes Plan 1. Metabolic encephalopathy -Secondary to UTI -Urine cultures contaminated -Ciprofloxacin switched to Bactrim day 2/ 2. Dementia -Gradual. Patient starting to become more agitated -Does not know she is . She has tried to escape from home -Supportive care -jewelry manager/PFS consulted -Seroquel BID 3. Hypertension -Continue bisoprolol 4. Hyperlipidemia -Continue atorvastatin 5. DVT ppx -Lovenox Disposition: Pending clinical improvement and caser/PFS consultation VS, I&O, 24H, Fishbone Vital Signs/I&O Vital Signs Date Time Temp Pulse Resp B/P (MAP) Pulse Ox O2 Delivery O2 Flow Rate FiO2 05/05/21 09:53 66 137/68 05/05/21 06:00 98.7 20 96 Room Air I&O- Last 24 Hours up to 6 AM 05/05/21 05:59 Intake Total 245 ml Output Total 750 ml Balance -505 ml Laboratory Data 24H LABS Laboratory Tests 2 05/04/21 16:46: Anion Gap 5L, Glomerular Filtration Rate > 60.0, Calcium Level 8.3L, Magnesium Level 1.9 05/05/21 05:49: Anion Gap 5L, Glomerular Filtration Rate 59.8, Calcium Level 8.7L, Magnesium Level 2.0, Nucleated Red Blood Cells % (auto) 0.0 CBC/BMP Laboratory Tests 05/04/21 16:46 05/05/21 05:49 Microbiology Microbiology 05/04/21 Urine Culture - Final, Complete OSEI SIMON DO May 05, 2021 13:38
[2021-05-05 17:05] VITALS: BP 140/65
[2021-05-05] MEDS: QUEtiapine FUMARATE 25 MG TAB PO SCH (21:00)
[2021-05-05] MEDS: ATORVASTATIN 20 MG TAB PO SCH (21:00)
[2021-05-05] MEDS: BACTRIM 160MG/800MG DS TAB PO SCH (21:00)
[2021-05-05 22:00] VITALS: BP 132/65
[2021-05-06] MEDS: OLANZapine 2.5MG TABLET PO PRN ×2 (01:47→07:39)
[2021-05-06 06:00] VITALS: BP 128/57
[2021-05-06] MEDS: THIAMINE 100 MG TAB PO SCH (07:38)
[2021-05-06] MEDS: VITAMIN D 1,000 INTERNATIONAL UNITS TABLET PO SCH (07:38)
[2021-05-06] MEDS: BACTRIM 160MG/800MG DS TAB PO SCH ×2 (07:39→22:28)
[2021-05-06] MEDS: OCUVITE 1 TAB PO SCH (07:39)
[2021-05-06] MEDS: bisoproloL fumarate 5 MG TAB PO SCH (07:39)
[2021-05-06] MEDS: ENOXAPARIN 40MG/0.4ML SYRINGE (J1650 PER 10MG) SC SCH (07:49)
--- NOTE | 2021-05-06 10:14 | IPNPDOC ---
Subjective Date Seen The patient was seen on 05/06/21. Subjective Chief Complaint/HPI Mrs. Chatterjee is a 80 year old female with dementia, hypertension, and CKD stage 3 who is here for metabolic encephalopathy. She was seen ambulating the sheets with the daughter this morning. She has poor memory. She kept thinking her father is hospitalized, but then remembers he is not alive. Daughter's presence has kept patient calm. Daughter and patient's are thinking of placement for patient. Objective Physical Examination General Exam: Positive: Alert; Negative: Cooperative Eye Exam: Negative: Sclera icteric ENT Exam: Positive: Atraumatic Neck Exam: Positive: Supple Chest Exam: Positive: Clear to auscultation Heart Exam: Positive: Rate Normal, Regular Rhythm Abdomen Exam: Positive: Normal bowel sounds, Soft; Negative: Tenderness Extremity Exam: Negative: Edema Psych Exam: Negative: Memory Intact Assessment /Plan Assessment Mrs. Chatterjee is a 80 year old female with dementia, hypertension, and CKD stage 3 who is here for metabolic encephalopathy 2/2 UTI. Patient will be put on antibiotics for the UTI. Otherwise, patient will still have dementia after treatment with UTI. is having troubling caring for her, especially with patient trying to escape from home. I've place consult for pillowcase cleaner/PFS. Plan/VTE VTE Prophylaxis Ordered?: Yes Plan 1. Metabolic encephalopathy -Secondary to UTI -Urine cultures contaminated -Ciprofloxacin switched to Bactrim day 11/21 2. Dementia -Gradual. Patient starting to become more agitated -Does not know she is . She has tried to escape from home -Supportive care -crop grain or livestock farm manager/PFS consulted -Seroquel BID 3. Hypertension -Continue bisoprolol 4. Hyperlipidemia -Continue atorvastatin 5. Constipation -Colace BID -Miralax PRN 6. DVT ppx -Lovenox Disposition: Pending pillowcase cleaner/PFS consultation VS, I&O, 24H, Fishbone Vital Signs/I&O Vital Signs Date Time Temp Pulse Resp B/P (MAP) Pulse Ox O2 Delivery O2 Flow Rate FiO2 05/06/21 06:00 98.3 68 18 128/57 (80) 93 Room Air I&O- Last 24 Hours up to 6 AM 05/06/21 05:59 Intake Total 390 ml Output Total 50 ml Balance 340 ml Laboratory Data Microbiology Microbiology 05/04/21 Urine Culture - Final, Complete OSEI SIMON DO May 06, 2021 10:14
[2021-05-06] MEDS ORDERED: MIRALAX *UNIT DOSE* 17GM PACKET PO PRN (10:15)
[2021-05-06] MEDS: DOCUSATE SODIUM 100MG CAPSULE PO SCH ×2 (11:04→22:28)
[2021-05-06 11:25] LABS: VITAMIN B12 LEVEL 635 PG/ML (247-911)
[2021-05-06 13:25] LABS: HEMATOCRIT 38.3 % (36.0-47.0); HEMOGLOBIN 12.9 g/dl (12.0-15.5); MEAN CORPUSCULAR HEMOGLOBIN 34.1 pg (27.0-33.0); MEAN CORPUSCULAR HGB CONC 33.7 g/dl (32.0-36.5); MEAN CORPUSCULAR VOLUME 101.3 fl (80.0-96.0); PLATELET COUNT, AUTOMATED 248 10^3/uL (150-450); RED BLOOD COUNT 3.78 10^6/uL (4.00-5.40); WHITE BLOOD COUNT 6.4 10^3/uL (4.0-10.0)
[2021-05-06 13:48] LABS: CALCIUM LEVEL 8.9 MG/DL (8.8-10.2); CREATININE FOR GFR 1.26 MG/DL (0.55-1.30); GLOMERULAR FILTRATION RATE 43.7 (>39); POTASSIUM SERUM 4.1 MEQ/L (3.5-5.1)
[2021-05-06] MEDS ORDERED: QUEtiapine FUMARATE 25 MG TAB PO ONE (14:00)
[2021-05-06 22:00] VITALS: BP 109/62
[2021-05-06] MEDS: OLANZapine ORAL DISINTEGRATING TAB 5MG PO PRN (22:28)
[2021-05-06] MEDS: QUEtiapine FUMARATE 25 MG TAB PO SCH (22:28)
[2021-05-06] MEDS: ATORVASTATIN 20 MG TAB PO SCH (22:28)
[2021-05-07 06:00] VITALS: BP 157/66
[2021-05-07 07:10] LABS: HEMATOCRIT 36.8 % (36.0-47.0); HEMOGLOBIN 12.3 g/dl (12.0-15.5); MEAN CORPUSCULAR HEMOGLOBIN 34.1 pg (27.0-33.0); MEAN CORPUSCULAR HGB CONC 33.4 g/dl (32.0-36.5); MEAN CORPUSCULAR VOLUME 101.9 fl (80.0-96.0); PLATELET COUNT, AUTOMATED 213 10^3/uL (150-450); RED BLOOD COUNT 3.61 10^6/uL (4.00-5.40); WHITE BLOOD COUNT 4.4 10^3/uL (4.0-10.0)
[2021-05-07 07:35] LABS: CALCIUM LEVEL 8.8 MG/DL (8.8-10.2); CREATININE FOR GFR 1.19 MG/DL (0.55-1.30); GLOMERULAR FILTRATION RATE 46.7 (>39); MAGNESIUM LEVEL 2.2 MG/DL (1.8-2.4); POTASSIUM SERUM 4.4 MEQ/L (3.5-5.1)
[2021-05-07] MEDS: ENOXAPARIN 40MG/0.4ML SYRINGE (J1650 PER 10MG) SC SCH (09:00)
[2021-05-07] MEDS: DOCUSATE SODIUM 100MG CAPSULE PO SCH ×2 (09:00→21:32)
[2021-05-07] MEDS: VITAMIN D 1,000 INTERNATIONAL UNITS TABLET PO SCH (09:00)
[2021-05-07] MEDS: OCUVITE 1 TAB PO SCH (09:00)
[2021-05-07] MEDS: THIAMINE 100 MG TAB PO SCH (09:00)
[2021-05-07 10:13] VITALS: BP 157/66
[2021-05-07] MEDS: BACTRIM 160MG/800MG DS TAB PO SCH (10:13)
[2021-05-07] MEDS: QUEtiapine FUMARATE 25 MG TAB PO SCH ×2 (10:13→21:32)
[2021-05-07] MEDS: OLANZapine ORAL DISINTEGRATING TAB 5MG PO PRN ×2 (10:13→21:32)
[2021-05-07] MEDS: bisoproloL fumarate 5 MG TAB PO SCH (10:13)
--- NOTE | 2021-05-07 13:20 | IPNPDOC ---
Subjective Date Seen The patient was seen on 05/07/21. Subjective Chief Complaint/HPI Mrs. Chatterjee is a 80 year old female with dementia, hypertension, and CKD stage 3 who is here for metabolic encephalopathy. This morning, she was sitting up in the chair. Denies chest pain or dyspnea. PFS found placement in [place], [place] at [facility]. Discharge will be early tomorrow morning at 8AM. Objective Physical Examination General Exam: Positive: Alert; Negative: Cooperative Eye Exam: Negative: Sclera icteric ENT Exam: Positive: Atraumatic Neck Exam: Positive: Supple Chest Exam: Positive: Clear to auscultation Heart Exam: Positive: Rate Normal, Regular Rhythm Abdomen Exam: Positive: Normal bowel sounds, Soft; Negative: Tenderness Extremity Exam: Negative: Edema Psych Exam: Negative: Memory Intact Assessment /Plan Assessment Mrs. Chatterjee is a 80 year old female with dementia, hypertension, and CKD stage 3 who is here for metabolic encephalopathy 2/2 UTI. Patient will be put on antibiotics for the UTI. Otherwise, patient will still have dementia after treatment with UTI. is having troubling caring for her, especially with patient trying to escape from home. PFS found placement for patient. Plan to go to [facility] in [place], [place] tomorrow morning at 8AM. Plan/VTE VTE Prophylaxis Ordered?: Yes Plan 1. Metabolic encephalopathy -Secondary to UTI -Urine cultures contaminated -Completed antibiotic course today. Will discontinue antibiotics today. 2. Dementia -Gradual. Patient starting to become more agitated -Does not know she is . She has tried to escape from home -Supportive care -sales property manager/PFS consulted -Seroquel BID 3. Hypertension -Continue bisoprolol 4. Hyperlipidemia -Continue atorvastatin 5. Constipation -Colace BID -Miralax PRN 6. DVT ppx -Lovenox Disposition: Discharge tomorrow at [facility] in [place], [place] VS, I&O, 24H, Fishbone Vital Signs/I&O Vital Signs Date Time Temp Pulse Resp B/P (MAP) Pulse Ox O2 Delivery O2 Flow Rate FiO2 05/07/21 10:13 55 157/66 05/07/21 06:00 97.8 16 99 Room Air I&O- Last 24 Hours up to 6 AM 05/07/21 05:59 Intake Total 1140 ml Balance 1140 ml Laboratory Data 24H LABS Laboratory Tests 2 05/06/21 13:11: Nucleated Red Blood Cells % (auto) 0.0, Anion Gap 7L, Glomerular Filtration Rate 43.7, Calcium Level 8.9, Magnesium Level 2.0 05/07/21 06:20: Nucleated Red Blood Cells % (auto) 0.0, Anion Gap 3L, Glomerular Filtration Rate 46.7, Calcium Level 8.8, Magnesium Level 2.2 CBC/BMP Laboratory Tests 05/06/21 13:11 05/07/21 06:20 Microbiology Microbiology 05/04/21 Urine Culture - Final, Complete OSEI SIMON DO May 07, 2021 13:20
[2021-05-07 14:00] VITALS: BP 110/68
[2021-05-07] MEDS: ATORVASTATIN 20 MG TAB PO SCH (21:32)
[2021-05-07] MEDS: ACETAMINOPHEN TAB 650MG DOSE (2X325MG) PO PRN (21:33)
[2021-05-07 22:00] VITALS: BP 111/65
[2021-05-07] MEDS ORDERED: QUET1TAB17 PO (22:21)
[2021-05-08 06:00] VITALS: BP 126/46
--- NOTE | 2021-05-08 06:24 | DS.PDOC ---
Discharge Summary General Date of Admission May 04, 2021 at 08:13 Date of Discharge May 08, 2021 Discharge Summary PROCEDURES PERFORMED DURING STAY: None ADMITTING DIAGNOSES: 1. Metabolic encephalopathy 2. UTI 3. Dementia 4. Hypertension 5. Hyperlipidemia DISCHARGE DIAGNOSES: 1. Metabolic encephalopathy 2. UTI 3. Dementia 4. Hypertension 5. Hyperlipidemia COMPLICATIONS/CHIEF COMPLAINT: Dementia, Uti. HISTORY OF PRESENT ILLNESS: Mrs. Chatterjee is a 80 year old female with dementia, hypertension, and CKD stage 3 who is here for metabolic encephalopathy. Patient was sedated with Ativan, and I was not able to obtain history from her. Instead, history was obtained from her Tariq Chatterjee. Patient has been having memory problems and agitation for several years. Her PCP had referred patient to neurology for dementia, but patient refused to do lab work and MRI. Her dementia has become progressively worse where she does not remember being to Tariq Chatterjee. She refers to him as "sir" and "friend". She would get in arguments with him and walk away. She would forget about her and about her family friends as well. She would sometimes cry and say she wants to go home when she was already at home. About 2 to 3 weeks ago, she started to become more agitated. She took all the coats out from the closet and throw them around the house. Last night after midnight, she wandered outside. Neighbor found her and spoke with her. She was agitated and police was called. She did not want to go home. came out and was eventually able to get her home. She got in an argument again with him at home, and she walked outside again. Police was called back, and patient was taken to the ED as a danger to herself. While here, vital signs were stable. No fever or leukocytosis. Renal function at baseline. TSH was within normal. Around 4 am, patient was agitated and was given IM Ativan. UA demonstrated pyuria. Patient will be admitted for metabolic encephalopathy. HOSPITAL COURSE: The following day, she was seen wandering the halls with the sitter. She was confused and kept thinking she had to go to the hospital to see her father. Her father is . She also thought she had a sone, but she does not have a son. Seroquel was started for her agitation, although sometimes she needed PO olanzapine to calm down. Otherwise, she completed an antibiotic course for her UTI. PFS spoke with family as family desired placement. Patient found placement at the [facility] in [place], [place]. DISCHARGE MEDICATIONS: Please see below. ALLERGIES: Please see below. PHYSICAL EXAMINATION ON DISCHARGE: VITAL SIGNS: Please see below. GENERAL: Comfortable, in no apparent distress HEENT: Head normocephalic, atraumatic NECK: Supple CARDIOVASCULAR EXAMINATION: Regular rate and rhythm RESPIRATORY EXAMINATION: Lungs clear to auscultation bilaterally ABDOMINAL EXAMINATION: Soft, non-tender, normal bowel sounds EXTREMITIES: No pitting edema bilaterally SKIN: Warm and dry NEUROLOGICAL EXAMINATION: CN 3-12 grossly intact LABORATORY DATA: Please see below. IMAGING: Radiologist interpretation CT head Moderate involutional changes, no acute intracranial abnormality. PROGNOSIS: Good ACTIVITY: As tolerated. DIET: As tolerated DISCHARGE PLAN: [facility] at [place], [place] DISPOSITION: [facility] at [place], [place]. DISCHARGE INSTRUCTIONS: 1. Follow up with PCP in 1 week DISCHARGE CONDITION: Stable Total time spent on discharge planning, discharge summary, and medication reconciliation: 45 minutes Vital Signs/I&Os Vital Signs Date Time Temp Pulse Resp B/P (MAP) Pulse Ox O2 Delivery O2 Flow Rate FiO2 05/07/21 14:00 97.4 67 17 110/68 (82) 97 Room Air I&O- Last 24 Hours up to 6 AM 05/07/21 06:00 Intake Total 1140 ml Balance 1140 ml Laboratory Data Labs 24H Laboratory Tests 2 05/07/21 06:20: Nucleated Red Blood Cells % (auto) 0.0, Anion Gap 3L, Glomerular Filtration Rate 46.7, Calcium Level 8.8, Magnesium Level 2.2 CBC/BMP Laboratory Tests 05/07/21 06:20 Microbiology Microbiology 05/07/21 Respiratory Virus Panel (PCR) ([facility]) - Final, Complete 05/04/21 Urine Culture - Final, Complete Discharge Medications Scheduled Atorvastatin Calcium (Atorvastatin Calcium) 20 Mg Tablet, 20 MG PO QHS, (Reported) Bisoprolol Fumarate (Bisoprolol Fumarate) 5 Mg Tablet, 5 MG PO DAILY, (Reported) Calcium Carbonate/Vitamin D3 (Calcium 500-Vit D3 400 Tablet) 1 Each Tablet, 1 TAB PO DAILY, (Reported) Cholecalciferol (Vitamin D3) (Vitamin D3) 1,000 Unit Tablet, 1,000 UNITS PO DAILY, (Reported) Multivitamins (Thera M Plus Tablet) 1 Each Tablet, 1 TAB PO DAILY, (Reported) Mv-Min/FA/Vit K/Lycop/Lut/Zeax (Ocuvite Eye Plus Multi Tablet) 1 Each Tablet, 1 TAB PO DAILY, (Reported) Quetiapine Fumarate (Quetiapine Fumarate) 25 Mg Tablet, 25 MG PO BID Scheduled PRN Ondansetron (Ondansetron Odt) 4 Mg Tab.rapdis, 4 MG PO Q6H PRN for NAUSEA OR VOMITING, (Reported) Allergies Coded Allergies: Penicillins (Verified Allergy, Unknown, UNSURE, 02/03/19) OSEI SIMON DO May 07, 2021 22:51
[2021-05-08] MEDS: OLANZapine ORAL DISINTEGRATING TAB 5MG PO PRN (06:31)
== END 2021-05-08 07:35 | DRG 689 ==
LOC: M ED 02:36 → M ED INP 08:13 → ENRESERV 09:53 → M MS5PR 11:20
PROVIDERS: ADMIT Internal Medicine; ATTEND Internal Medicine
DX: N39.0 Urinary tract infection, site not specified (principal); G93.41 Metabolic encephalopathy; F03.91 Unspecified dementia, unspecified severity, with behavioral disturbance; I12.9 Hypertensive chronic kidney disease with stage 1 through stage 4 chronic kidney disease, or unspecified chronic kidney disease; N18.30 Chronic kidney disease, stage 3 unspecified; Z79.899 Other long term (current) drug therapy; Z20.822 Contact with and (suspected) exposure to COVID-19; Z88.0 Allergy status to penicillin; K21.9 Gastro-esophageal reflux disease without esophagitis; E78.5 Hyperlipidemia, unspecified; M85.88 Other specified disorders of bone density and structure, other site; E55.9 Vitamin D deficiency, unspecified; Z87.891 Personal history of nicotine dependence; K59.00 Constipation, unspecified